=== PATIENT | female | born 1945 | race Caucasian/White ===

== ENCOUNTER 2018-09-26 04:46 | Inpatient (IN) | payer BC, OTHER ==
[~2018-09-26] VITALS: Ht 160 cm; Wt 61.7 kg
[~2018-09-26 04:46] MED LIST: AMLO10TA4 PO; FLUO40CA8 PO; HYDR-3974 PO
--- NOTE | 2018-09-26 04:55 | NUR ---
PT BIBRA FOR SOB. PER EMS, PT WAS SATURATING IN THE 80S BUT WAS GIVEN ALBUTEROL TREATMENT EN ROUTE AND PT SATURATION WENT TO 99%. PT AXO4. PT TACHYPNIC AND DYPSNIC UPON ARRIVAL. PT PUT ON THE [employer] AND PULSE OX.
--- NOTE | 2018-09-26 05:15 | NUR ---
XRAY AT BEDSIDE.
[2018-09-26] MEDS ORDERED: ALBUTEROL FS 2.5 MG/0.5 ML VIAL.NEB ONE (05:18)
--- NOTE | 2018-09-26 05:20 | NUR ---
RT AT BEDSIDE.
[2018-09-26 05:28] LABS: BASOPHILS # (AUTO) 0.1 /CMM (0.0-0.2); BASOPHILS % (AUTO) 0.6 % (0.0-2.0); EOSINOPHILS % (AUTO) 0.9 % (0.0-6.0); HEMATOCRIT 41 % (33-45); HEMOGLOBIN 13.9 g/dL (11.5-14.8); LYMPHOCYTES # (AUTO) 2.2 /CMM (0.8-4.8); LYMPHOCYTES % (AUTO) 21.6 % (20.0-44.0); MEAN CORPUSCULAR HGB CONC 34 g/dl (31.0-36.0); MEAN CORPUSCULAR VOLUME 98 fL (82-100); MONOCYTES # (AUTO) 0.7 /CMM (0.1-1.30); MONOCYTES % (AUTO) 6.5 % (2.0-12.0); NEUTROPHILS % (AUTO) 70.4 % (43.0-81.0); PLATELET COUNT (AUTO) 215 /CMM (150-450); RED BLOOD CELL COUNT(AUTO) 4.21 MIL/uL (4.0-5.2)
[2018-09-26] MEDS ORDERED: ALBUTEROL FS 2.5 MG/0.5 ML VIAL.NEB NEB ONE (05:30)
--- NOTE | 2018-09-26 05:35 | NUR ---
PT HAVING NAUSEA AND VOMITTING. ER MD AWARE. VERBAL ORDER OF 4MG ZOFRAN IVP. WILL CARRY OUT ORDERS.
[2018-09-26 05:38] LABS: CALCIUM, SERUM 8.3 mg/dL (8.5-10.1); CARBON DIOXIDE 25 mmol/L (21-32); CHLORIDE 106 mmol/L (98-107); CREATININE 1.1 mg/dL (0.6-1.3); GLUCOSE 154 mg/dL (74-106); POTASSIUM 3.1 mmol/L (3.5-5.1); SODIUM SERUM 140 mmol/L (136-145); UREA NITROGEN, BLOOD 26 mg/dL (7-18)
[2018-09-26] MEDS ORDERED: ONDANSETRON HCL/PF 4 MG/2 ML VIAL ONE (05:38)
[2018-09-26 05:51] LABS: ALANINE AMINOTRANSFERASE 73 U/L (12-78); ALBUMIN 3.4 g/dL (3.4-5.0); ALKALINE PHOSPHATASE 115 U/L (46-116); ASPARTATE AMINOTRANSFERASE 67 U/L (15-37); B-TYPE NATRIURETIC PEPTIDE 3634 PG/ML (0-125); BILIRUBIN,DIRECT 0.1 mg/dL (0.0-0.2); BILIRUBIN,TOTAL 0.3 mg/dL (0.2-1.0); TOTAL PROTEIN, SERUM 6.4 g/dL (6.4-8.2)
[2018-09-26] MEDS ORDERED: ONDANSETRON HCL/PF 4 MG/2 ML VIAL IV ONE (06:00)
--- NOTE | 2018-09-26 06:30 | NUR ---
PT RESTING IN BED, NAD NOTED. WILL CONTINUE TO MONITOR.
[2018-09-26] MEDS ORDERED: FUROSEMIDE 40 MG/4 ML VIAL ONE (06:35)
[2018-09-26] MEDS ORDERED: POTASSIUM CHLORIDE 20 MEQ TAB.PRT.SR PO ONE ×2 (06:35→07:00)
[2018-09-26] MEDS ORDERED: NITROGLYCERIN PACKET 1 GM PACKET ONE (06:46)
[2018-09-26] MEDS ORDERED: ASPIRIN 81 MG TAB.CHEW ONE (06:47)
[2018-09-26] MEDS ORDERED: NITROGLYCERIN PACKET 1 GM PACKET TD ONE (07:00)
[2018-09-26] MEDS ORDERED: FUROSEMIDE 40 MG/4 ML VIAL IV ONE (07:00)
[2018-09-26] MEDS ORDERED: ASPIRIN 81 MG TAB.CHEW PO ONE (07:00)
--- NOTE | 2018-09-26 07:33 | NUR ---
REPORT GIVEN TO FATEMEH HARMAN FOR JOCELYNN.
[2018-09-26] MEDS ORDERED: AMLO5TAB9 PO (07:52)
[2018-09-26] MEDS ORDERED: ASPI-1169 PO (07:52)
--- NOTE | 2018-09-26 08:05 | NUR ---
Updated with plan of care- reclining in bed NO obvious distress no acute changes from initial assessment await disposition
--- NOTE | 2018-09-26 11:01 | NUR ---
TELE 308-2
--- NOTE | 2018-09-26 11:09 | NUR ---
REPORT GIVEN TO URIEL OF TELE UNIT
[2018-09-26 12:05] VITALS: BP 151/82
[2018-09-26] MEDS ORDERED: HYDROCODONE/APAP 5/325MG 1 EACH TABLET PO PRN (13:30)
--- NOTE | 2018-09-26 13:30 | NUR ---
SENIOR STEREO COMPILER TEAM LEAD ADMITTING NOTES ADMITTED TO 73 Y/O FEMALE FROM [facility]. VIA WHEELCHAIR AT 1200. PT IS A/O X4. ABLE TO VERBALIZED NEEDS WITH C/O MILD HEADACHE. PT WITH DIAGNOSIS OF SOB AND CHF. ORIENTED TO UNIT AND ROOM. PT ON 02 VIA N/C AT 2LPM, TOLERATING WELL WITH SP02 OF 96% NOTED. V/S TAKEN AND RECORDED. PT PLACED ON TELEMONITORING SHOWING SR WITH HR OF 80, NO C/O CARDIAC DISTRESS VOICED. PT WITH CLEAR LUNGS ON AUSCULTATION . ABDOMEN SOFT, NON-TENDER AND NON-DISTENDED. PT NOTED WITH IV ACCESS ON LAC G#20 INTACT AND PATENT. PHOTOS OF SKIN ISSUES TAKEN AD FILED ON CHART. SAFETY MEASURES INITIATED. BED PLACED IN LOW LOCKED POSITION WITH SR UP X2. CALL LIGHT IN REACH. DR DAVENPORT MADE AWARE OF PT'S ADMISSION. WILL CONTINUE TO MONITOR PT ACCORDINGLY
[2018-09-26] MEDS: ACETAMINOPHEN 325 MG TABLET PO PRN ×2 (13:40→20:07)
[2018-09-26] MEDS: FUROSEMIDE 20 MG/2 ML VIAL IV SCH (16:53)
[2018-09-26] MEDS: AMLODIPINE BESYLATE 5 MG TABLET PO SCH (16:53)
[2018-09-26] MEDS: POTASSIUM CHLORIDE 20 MEQ TAB.PRT.SR PO SCH (16:53)
--- NOTE | 2018-09-26 18:30 | NUR ---
DOG GROOMER CLOSING NOTES PT AWAKE AND RESTING AT MODERATE HIGH BACKREST POSITION AT THIS TIME. A/O X4. ABLE TO MAKE NEEDS KNOWN. MAINTAINED ON 02 VIA N/C AT 2LPM, TOLERATING WELL WITH NO SOB NOTED. ON TELEMONITORING WITH CURRENT READING OF SR WITH HR OF 79, NO C/O CARDIAC DISTRESS VOICED. ALL NEEDS AND CARE ATTENDED WELL. IV ACCESS ON LAC G#20 INTACT AND PATENT, FLUSHES WELL. SAFETY MEASURES KEPT IN PLACE. BED IN LOW LOCKED POSITION WITH SR UP X2. CALL LIGHT IN REACH. WILL ENDORSE TO PUBLIC AREA SUPERVISOR NURSE FOR JOCELYNN.
[2018-09-26 20:00] VITALS: BP 152/80
--- NOTE | 2018-09-26 20:31 | NUR ---
RN NOTES COMPLAINED OF HEADACHE- TYLENOL 650MNG PO GIVEN ORDERED, V/S STABLE
[2018-09-26 20:34] LABS: APPEARANCE,URINE SL CLOUDY (CLEAR); BILIRUBIN,URINE NEGATIVE (NEGATIVE); BLOOD, URINE 3+ Ery/uL (NEGATIVE); COLOR,URINE YELLOW (YELLOW); KETONES,URINE NEGATIVE (NEGATIVE); LEUKOCYTE ESTERASE ,URINE NEGATIVE (NEGATIVE); NITRITE, URINE NEGATIVE (NEGATIVE); PROTEIN,URINE NEGATIVE (NEGATIVE); UGLUCOSE NEGATIVE (NEGATIVE); UROBILINOGEN,URINE 0.2 EU/dL (0.2)
--- NOTE | 2018-09-26 21:06 | NUR ---
RN NOTE RECEIVED PT. AWAKE ON BED, A/OX4, AMBULATE WITH ASSIST, SR ON TELE MONITOR HR-77, COMPLAINED PT HEADACHE- WILL GIVE TYLENOL, CALL LIGHT WITHIN REACH, [id number],, CONTINUE TO MONITOR
[2018-09-26 21:28] LABS: BACTERIA,URINE None seen /HPF (None Seen); RBC,URINE 21-50 /HPF (0-2); WBC,URINE 0-2 /HPF (0-3)
[2018-09-26 21:29] LABS: SQUAMOUS EPITHELIAL CELL,UR Few /HPF (None Seen)
--- NOTE | 2018-09-26 23:12 | NUR ---
Patient lives alone in an apartment. Prior to hospitalization she was normally ambulatory and independent with adl's. Has no DME or homehealth reported. Her pcp is Dr. Geo Walsh [phone]. She plan to return home once discharge. Addendum: 09/26/18 at 2312 by JUDI PLATT RN Amended: Links added.
[2018-09-27] VITALS: BP 129/63
[2018-09-27 05:00] VITALS: BP 153/71
[2018-09-27 06:21] LABS: BASOPHILS % (AUTO) 0.3 % (0.0-2.0); EOSINOPHILS % (AUTO) 0.5 % (0.0-6.0); HEMATOCRIT 40 % (33-45); HEMOGLOBIN 13.8 g/dL (11.5-14.8); LYMPHOCYTES # (AUTO) 2.6 /CMM (0.8-4.8); LYMPHOCYTES % (AUTO) 26.2 % (20.0-44.0); MEAN CORPUSCULAR HGB CONC 34 g/dl (31.0-36.0); MEAN CORPUSCULAR VOLUME 97 fL (82-100); MONOCYTES # (AUTO) 0.7 /CMM (0.1-1.30); MONOCYTES % (AUTO) 7.2 % (2.0-12.0); NEUTROPHILS # (AUTO) 6.5 /CMM (1.8-8.9); NEUTROPHILS % (AUTO) 65.8 % (43.0-81.0); PLATELET COUNT (AUTO) 208 /CMM (150-450); RED BLOOD CELL COUNT(AUTO) 4.16 MIL/uL (4.0-5.2); WHITE BLOOD COUNT (AUTO) 9.9 K/uL (4.3-11.0)
[2018-09-27 06:33] VITALS: BP 153/71
[2018-09-27 06:40] LABS: CALCIUM, SERUM 8.7 mg/dL (8.5-10.1); CARBON DIOXIDE 29 mmol/L (21-32); CHLORIDE 105 mmol/L (98-107); CREATININE 0.9 mg/dL (0.6-1.3); GLUCOSE 104 mg/dL (74-106); POTASSIUM 3.4 mmol/L (3.5-5.1); SODIUM SERUM 144 mmol/L (136-145); UREA NITROGEN, BLOOD 22 mg/dL (7-18)
--- NOTE | 2018-09-27 06:47 | NUR ---
RN NOTES AWAKE, DENIES PAIN, NO SOB, MORNING CARE RENDERED, CALL LIGHT WITHIN REACH, SIDERAILSUPX2, PT. NEEDS ATTENDED
[2018-09-27 06:53] LABS: THYROID STIMULATING HORMONE 1.822 uIU/mL (0.358-3.74)
--- NOTE | 2018-09-27 07:11 | NUR ---
DIRECTOR CORPORATE OPENING NOTES RECEIVED PT AWAKE IN BED IN NO ACUTE SIGNS OF DISTRESS. A/O X4. ABLE TO MAKE NEEDS KNOWN, DENIES PAIN OR DISCOMFORTS AT THIS TIME. ON 02 VIA N/C AT 2LPM, TOLERATING WELL WITH NO SOB NOTED. ON TELEMONITORING SHOWING SR WITH BBB AND HR OF 66, NO C/O CARDIAC DISTRESS VOICED. IV ACCESS ON LAC G#20 INTACT AND PATENT, FLUSHES WELL WITH NS. SAFETY MEASURES IN PLACE. BED IN LOW LOCKED POSITION WITH SR UP X2. CALL LIGHT IN REACH. WILL CONTINUE TO MONITOR.
[2018-09-27 08:00] VITALS: BP 136/72
[2018-09-27] MEDS ORDERED: FURO-145 PO (08:34)
[2018-09-27] MEDS ORDERED: POTA20TA83 PO (08:37)
[2018-09-27] MEDS: FUROSEMIDE 20 MG/2 ML VIAL IV SCH (08:49)
[2018-09-27] MEDS: AMLODIPINE BESYLATE 5 MG TABLET PO SCH (08:49)
[2018-09-27] MEDS: POTASSIUM CHLORIDE 20 MEQ TAB.PRT.SR PO SCH (08:49)
[2018-09-27] MEDS ORDERED: AMLODIPINE BESYLATE 5 MG TABLET PO SCH (09:00)
[2018-09-27] MEDS ORDERED: ASPIRIN 81 MG TAB.CHEW PO SCH (09:00)
[2018-09-27] MEDS ORDERED: POTASSIUM CHLORIDE 20 MEQ TAB.PRT.SR PO ONE (09:00)
[2018-09-27] MEDS ORDERED: FLUOXETINE HCL 20 MG CAPSULE PO SCH (09:00)
[2018-09-27 12:00] VITALS: BP 158/80
--- NOTE | 2018-09-27 15:18 | NUR ---
CONTROL CLERK FOOD AND BEVERAGE NOTES PATIENT DISCHARGE HOME IN STABLE CONDITION. A/O X4. ABLE TO MAKE NEEDS KNOWN WITH NO C/O PAIN OR DISCOMFORTS VOICED DURING DISCHARGE. V/S TAKEN AND RECORDED. PHOTOS OF SKIN ISSUES TAKEN AND FILED ON CHART. ALL BELONGINGS ACCOUNTED FOR. NAME WRISTBAND REMOVED. IV ACCESS REMOVED WITH MINIMAL BLEEDING NOTED, PRESSURE GAUZED APPLIED AND TAPED. HEALTH TEACHINGS /DISCHARGE INSTRUCTIONS GIVEN AND VERBALIZED UNDERSTANDING. NEW PRESCRIPTION GIVEN TO PT. PT LEFT UNIT AMBULATORY ACCOMPANIED BY FRIEND ALAN AT 1510. MD AND CHARGE NURSE AWARE OF DISCHARGE.
== END 2018-09-27 15:00 | disposition home or self-care (01) | DRG 292 ==
LOC: ER 04:52 → TELE 11:28 → MED 15:08 → TELE 17:33 → MED 09-27 08:25
PROVIDERS: ADMIT Internal Medicine; ATTEND Internal Medicine
DX: I11.0 Hypertensive heart disease with heart failure (principal); E87.2 Acidosis; I50.33 Acute on chronic diastolic (congestive) heart failure; F43.10 Post-traumatic stress disorder, unspecified; Z95.2 Presence of prosthetic heart valve; E87.6 Hypokalemia; R09.02 Hypoxemia; Z88.2 Allergy status to sulfonamides
CPT/HCPCS: 36415; 71045-TC; 80048-TC; 80076-TC; 81000-TC; 83605-TC; 83880; 84443-TC; 84484-TC; 85025-TC; 85730-TC; 87040-TC; 87081-TC; 93307-TC; G0378; J1940; J2405

== ENCOUNTER 2019-04-21 20:16 | Inpatient (IN) | payer OTHER ==
[~2019-04-21] VITALS: Ht 160 cm; Wt 54.4 kg
[~2019-04-21 20:16] MED LIST changes: -AMLO10TA4 PO; +AMLO5TAB9 PO; +ASPI-1169 PO; +FURO-145 PO; -HYDR-3974 PO; +POTA20TA83 PO
--- NOTE | 2019-04-21 20:17 | NUR ---
PT CAME INTO ER FOR SOB AFTER BENDING FORWARD. PT HAS BEEN COMPLIANT WITH LASIX PRESCRIBED BY HER ENVIRONMENTAL DESIGNER. AAOX4. NO NAUSEA/VOMITING. CRACKLES HEARD UPON AUSCULATION LOWER LOBES BILATERALLY. ON ROOM AIR 98%. NOT IN ANY DISTRESS. BREATHING EVENLY AND UNLABORED. WILL CONTINUE TO MONITOR PATIENT.
--- NOTE | 2019-04-21 20:42 | NUR ---
BLOOD DRAWN AND SENT TO LAB
[2019-04-21 20:48] LABS: BASOPHILS # (AUTO) 0.3 /CMM (0.0-0.2); BASOPHILS % (AUTO) 3.4 % (0.0-2.0); EOSINOPHILS % (AUTO) 1.2 % (0.0-6.0); HEMATOCRIT 43 % (33-45); HEMOGLOBIN 14.2 g/dL (11.5-14.8); LYMPHOCYTES # (AUTO) 1.4 /CMM (0.8-4.8); LYMPHOCYTES % (AUTO) 15.1 % (20.0-44.0); MEAN CORPUSCULAR HGB CONC 33 g/dl (31.0-36.0); MEAN CORPUSCULAR VOLUME 99 fL (82-100); MONOCYTES # (AUTO) 0.5 /CMM (0.1-1.30); MONOCYTES % (AUTO) 5.7 % (2.0-12.0); NEUTROPHILS % (AUTO) 74.6 % (43.0-81.0); PLATELET COUNT (AUTO) 223 /CMM (150-450); RED BLOOD CELL COUNT(AUTO) 4.36 MIL/uL (4.0-5.2); WHITE BLOOD COUNT (AUTO) 9.3 K/uL (4.3-11.0)
--- NOTE | 2019-04-21 20:55 | NUR ---
DRAWING KILN SUPERVISOR AT BEDSIDE.
[2019-04-21 21:08] LABS: ALBUMIN 3.4 g/dL (3.4-5.0); BILIRUBIN,DIRECT 0.2 mg/dL (0.0-0.2); BILIRUBIN,TOTAL 0.7 mg/dL (0.2-1.0); CALCIUM, SERUM 8.9 mg/dL (8.5-10.1); CREATININE 1.1 mg/dL (0.6-1.3); TOTAL PROTEIN, SERUM 6.2 g/dL (6.4-8.2)
[2019-04-21 21:09] LABS: POTASSIUM 2.8 mmol/L (3.5-5.1)
[2019-04-21] MEDS ORDERED: POTASSIUM CHLORIDE 20 MEQ TAB.PRT.SR PO ONE (21:30)
--- NOTE | 2019-04-21 21:57 | NUR ---
SPOKE WITH [facility] IS PROJECT MANAGER. POSSIBLE TRANSFER TO EITHER [facility] OR [facility]. PENDING MD TO
--- NOTE | 2019-04-21 22:09 | NUR ---
DR. MOTA ON THE PHONE WITH DR. PEARCE FROM [facility]
--- NOTE | 2019-04-21 22:53 | NUR ---
SENIOR GEOLOGIST STATES NO BEDS AT [facility], WILL FIND A BED AT [facility] AND FOLLOW UP
--- NOTE | 2019-04-21 23:54 | NUR ---
PER KADIE PEÑA RESTAURANT WORKER ([phone]) STILL WAITING FOR BED AT [facility]
--- NOTE | 2019-04-22 00:20 | NUR ---
PER CASEY SEGOVIA, NO BEDS AVAILABLE AT [facility] OR [facility], AUTHORIZATION TO STAY AT [facility]
--- NOTE | 2019-04-22 00:35 | NUR ---
patient going TO ROOM 308-2
--- NOTE | 2019-04-22 00:41 | NUR ---
REPORT GIVEN TO CHELSEY FOR JOCELYNN.
[2019-04-22] MEDS ORDERED: FURO-145 PO (00:50)
[2019-04-22] MEDS ORDERED: POTA10CA43 PO (00:50)
[2019-04-22 01:00] VITALS: BP_SYST 152; BP_SYST 155; BP_DIAS 85
[2019-04-22] MEDS ORDERED: ACETAMINOPHEN 325 MG TABLET PO PRN (01:00)
[2019-04-22] MEDS ORDERED: Magnesium 1GM/D5W 100ML PREMIX PIGGYBACK IV ONE (01:00)
--- NOTE | 2019-04-22 01:00 | NUR ---
AIR LIFT OPERATORMECHANICAL SERVICE REPRESENTATIVE NOTE RECEIVED PATIENT VIA GURNEY. PATIENT TRANSPORTED TO BED. A/O X4. ON OXYGEN 2L/MIN VIA NASAL CANNULA. RESPIRATIONS ARE EVEN AND UNLABORED. SOB NOTED WHEN PATIENT IS TRYING TO SIT UP IN BED. DENIES PAIN AT THIS TIME. EXTERNAL TELE MONITOR READS SR WITH PVC HR 82. NO APPARENT DISTRESS NOTED. IV ACCESS IN LAC #20 PATENT AND SALINE LOCKED. ID BAND CHANGED, PATIENT CHANGED INTO GOWN, VS TAKEN. INITIAL PHYSICAL ASSESSMENT COMPLETED AT THIS TIME. SKIN ASSESSMENT COMPLETED, PICTURES TAKEN AND PLACED IN CHART. BELONGINGS LIST COMPLETED BY RAIL GANG SUPERVISOR. ROOM ORIENTATION GIVEN WELL USE OF CALL LIGHT. BED IS LOW AND LOCKED, HOB FLAT, SIDE RAILS UP X2. CALL LIGHT WITHIN REACH. WILL CONTINUE TO MONITOR.
[2019-04-22] MEDS: AMLODIPINE BESYLATE 10 MG TABLET PO SCH ×2 (01:52→08:30)
[2019-04-22 04:22] VITALS: BP 143/76
[2019-04-22 06:32] LABS: BASOPHILS % (AUTO) 0.3 % (0.0-2.0); EOSINOPHILS % (AUTO) 0.7 % (0.0-6.0); HEMATOCRIT 42 % (33-45); LYMPHOCYTES # (AUTO) 2.3 /CMM (0.8-4.8); LYMPHOCYTES % (AUTO) 22.1 % (20.0-44.0); MEAN CORPUSCULAR HGB CONC 33 g/dl (31.0-36.0); MEAN CORPUSCULAR VOLUME 99 fL (82-100); MONOCYTES # (AUTO) 0.7 /CMM (0.1-1.30); MONOCYTES % (AUTO) 6.6 % (2.0-12.0); NEUTROPHILS # (AUTO) 7.2 /CMM (1.8-8.9); NEUTROPHILS % (AUTO) 70.3 % (43.0-81.0); PLATELET COUNT (AUTO) 200 /CMM (150-450); RED BLOOD CELL COUNT(AUTO) 4.25 MIL/uL (4.0-5.2); WHITE BLOOD COUNT (AUTO) 10.2 K/uL (4.3-11.0)
[2019-04-22 06:35] LABS: CALCIUM, SERUM 8.5 mg/dL (8.5-10.1); POTASSIUM 3.1 mmol/L (3.5-5.1)
--- NOTE | 2019-04-22 07:00 | NUR ---
PROFESSOR OF SOCIOLOGY CLOSING NOTE PATIENT RESTING IN BED. A/O X4. ON OXYGEN 2L/MIN VIA NASAL CANNULA, RESPIRATIONS EVEN AND UNLABORED. SOB NOTED WHEN EXERTION. NO C/O PAIN THROUGHOUT SHIFT. TELE READS SR PVC 88. NO DISTRESS THROUGHOUT NIGHT. IV ACCESS MAINTAINED IN LFA #20 SL. BED REMAINS LOW AND LOCKED, SIDE RAILS UP X2, BED ALARM ON. WILL ENDORSE TO NEXT SHIFT.
--- NOTE | 2019-04-22 07:27 | NUR ---
DIAMOND POWDER TECHNICIAN NOTES PATIENT RECEIVED RESTING IN BED A/O x4. IV LOCATED ON L AC #20. NO SIGNS OF ACUTE DISTRESS AND CURRENTLY NO COMPLAINTS OF ANY PAIN OR NAUSEA. SR 88. SAFETY PRECAUTIONS ARE IN PLACE WITH BED IN LOWEST POSITION, BED ALARM ON, AND CALL LIGHT WITHIN REACH. WILL CONTINUE TO MONITOR.
[2019-04-22 08:07] VITALS: BP 135/72
[2019-04-22] MEDS: FUROSEMIDE 40 MG/4 ML VIAL IV SCH ×2 (08:29→16:51)
[2019-04-22] MEDS: ASPIRIN 81 MG TAB.CHEW PO SCH (08:30)
[2019-04-22] MEDS: FLUOXETINE HCL 20 MG CAPSULE PO SCH (08:30)
[2019-04-22] MEDS: POTASSIUM CHLORIDE 20 MEQ TAB.PRT.SR PO SCH ×2 (08:30→16:51)
--- NOTE | 2019-04-22 08:45 | NUR ---
RN NOTE RECEIVED ORDER FROM DR RAMIREZ TO DISCONTINUE TELE AND TRANSFER THE PATIENT TO [facility].
[2019-04-22] MEDS ORDERED: POTASSIUM CHLORIDE 20 MEQ TAB.PRT.SR PO ONE (09:00)
--- NOTE | 2019-04-22 09:00 | NUR ---
INTERNATIONAL BROADCAST MUSIC LIBRARIAN NOTES SEEN BY DR. DAVENPORT AND CARDIO CONSULT WAS ORDERED.
--- NOTE | 2019-04-22 09:37 | NUR ---
VP ORGANIZATIONAL DEVELOPMENT NOTES PATIENT WAS SEEN BY DR. HERNANDES AND ORDERED A CT ANGIOGRAM. WILL OBTAIN CONSENT FORM.
[2019-04-22] MEDS ORDERED: CT SWABBABLE VALVE TRANS SET 1 EA INFUS.SET MC ONE (10:21)
[2019-04-22] MEDS ORDERED: IOHEXOL-350 100 ML VIAL IV ONE (10:21)
[2019-04-22] MEDS ORDERED: IV NS 0.9% 250 ML IV ONE (10:21)
[2019-04-22] MEDS ORDERED: METOPROLOL TARTRATE INJ 5 MG/5 ML AMPUL ONE (10:23)
[2019-04-22] MEDS ORDERED: IV NS 0.9% 500 ML IV ONE (10:24)
--- NOTE | 2019-04-22 10:26 | NUR ---
PARTS PERSON NOTES PATIENT PICKED UP VIA WHEELCHAIR TO GO TO DIRECTOR OF HOSPITALITY FOR CT ANGIOGRAM. MEDICAL RECORDS BROUGHT DOWN WITH PATIENT.
[2019-04-22] MEDS ORDERED: NITROGLYCERIN 4.9 GM SPRAY SL PRN (10:30)
[2019-04-22] MEDS ORDERED: IV NS 0.9% 500 ML IV PRN (10:30)
[2019-04-22] MEDS: METOPROLOL TARTRATE INJ 5 MG/5 ML AMPUL IVP PRN ×3 (10:38→11:08)
--- NOTE | 2019-04-22 11:16 | NUR ---
CTA Cardiac notes VSS denies CP or SOb at 1102 pt felt SOB , felt warm, VSS ; O2 sat on 2 LPM at 97% verbalized " same feeling i felt for 6 months. i feel like i want to pee". pt felt better after a few minutes, VSS. denies Cp SOb at this time
--- NOTE | 2019-04-22 11:45 | NUR ---
CTA Cardio completed; VSS stable 116/57 Report given to Jelena HARMAN, pt transferred back to [facility] via wheelchair
--- NOTE | 2019-04-22 11:52 | NUR ---
M/S RN NOTES PATIENT BACK FROM [facility] CARDIO. NO SIGNS OF DISTRESS NOTED AND NO COMPLAINTS OF PAIN. WILL CONTINUE TO MONITOR.
[2019-04-22 12:01] LABS: THYROID STIMULATING HORMONE 2.184 uIU/mL (0.358-3.74)
--- NOTE | 2019-04-22 13:09 | NUR ---
MS/RN 2D Echo 2D echo in progress at bedside.
[2019-04-22 16:00] VITALS: BP 116/69
--- NOTE | 2019-04-22 18:19 | NUR ---
M/S RN NOTES PATIENT IS RESTING IN BED WATCHING TV, A/O x4. ABLE TO FOLLOW COMMANDS AND VOCALIZE NEEDS. PATIENT IS AMBULATORY. PATIENT IS ON 2L OF O2 NASAL CANULA WITH O2 SAT AT 99. NO SIGNS OF ACUTE DISTRESS AND NO CURRENT COMPLAINTS OF PAIN OR NAUSEA. IV'S LOCATED ON LEFT AC #20 SL AND RIGHT AC #18 SL. SAFETY PRECAUTIONS ARE IN PLACE WITH BED IN LOWEST POSITION, SIDE RAILS UP x2, AND CALL LIGHT WITHIN REACH. WILL ENDORSE TO ONCOMING SHIFT ABOUT JOCELYNN.
--- NOTE | 2019-04-23 06:30 | NUR ---
M/S RN PM CLOSING NOTES PATIENT IS RESTING IN BED A/O x4. PATIENT IS AMBULATORY. PATIENT IS ON 2L OF O2 NASAL CANULA WITH O2 SAT DENIES SOB. NO SIGNS OF ACUTE DISTRESS AND DENIES PAIN OR NAUSEA. IV'S LOCATED ON LEFT AC #20 SL. PT ASSISTED TO BATHROOM. SAFETY PRECAUTIONS ARE IN PLACE WITH BED IN LOWEST POSITION, SIDE RAILS UP x2, AND CALL LIGHT WITHIN REACH.
[2019-04-23 08:00] VITALS: BP 136/69
--- NOTE | 2019-04-23 08:00 | NUR ---
ms rn received on bed, awake,alert,oriented x4,not in any form of distress, respirations even and unlabored,no sob noted, lungs are clear,abdomen soft,positive bowel sounds,denies pain at this time,all needs attended.
--- NOTE | 2019-04-23 08:00 | NUR ---
MS RN OPENING NOTES Received Patient awake and eating breakfast at this time. A/O x 4. VS stable with no acute distress. Breathing even and unlabored on 2LPM via NC with no respiratory distress. Denies pain. 20g PIV on LAC clean, intact, patent, and flushing well. Safety precautions in place. Bed locked and set to lowest position with side rails x 2 up. All needs rendered at this time. Call light within reach. Will continue to monitor.
[2019-04-23 08:44] LABS: BASOPHILS # (AUTO) 0.1 /CMM (0.0-0.2); BASOPHILS % (AUTO) 0.8 % (0.0-2.0); EOSINOPHILS % (AUTO) 0.4 % (0.0-6.0); HEMATOCRIT 42 % (33-45); LYMPHOCYTES # (AUTO) 1.3 /CMM (0.8-4.8); LYMPHOCYTES % (AUTO) 13.3 % (20.0-44.0); MEAN CORPUSCULAR HGB CONC 33 g/dl (31.0-36.0); MEAN CORPUSCULAR VOLUME 98 fL (82-100); MONOCYTES # (AUTO) 0.6 /CMM (0.1-1.30); MONOCYTES % (AUTO) 6.1 % (2.0-12.0); NEUTROPHILS % (AUTO) 79.4 % (43.0-81.0); PLATELET COUNT (AUTO) 193 /CMM (150-450); RED BLOOD CELL COUNT(AUTO) 4.26 MIL/uL (4.0-5.2); WHITE BLOOD COUNT (AUTO) 10.1 K/uL (4.3-11.0)
--- NOTE | 2019-04-23 09:00 | NUR ---
ms mix breakfast served,due meds given,tolerated we.
--- NOTE | 2019-04-23 09:10 | NUR ---
ms mix breakfast served,due meds given,tolerated well
[2019-04-23 09:11] LABS: ALBUMIN 3.1 g/dL (3.4-5.0); BILIRUBIN,TOTAL 0.5 mg/dL (0.2-1.0); CALCIUM, SERUM 9.1 mg/dL (8.5-10.1); CREATININE 1.1 mg/dL (0.6-1.3); POTASSIUM 3.5 mmol/L (3.5-5.1); TOTAL PROTEIN, SERUM 5.8 g/dL (6.4-8.2)
[2019-04-23] MEDS: POTASSIUM CHLORIDE 20 MEQ TAB.PRT.SR PO SCH ×2 (10:13→18:08)
[2019-04-23] MEDS: FUROSEMIDE 40 MG/4 ML VIAL IV SCH ×2 (10:13→18:08)
[2019-04-23] MEDS: FLUOXETINE HCL 20 MG CAPSULE PO SCH (10:14)
[2019-04-23] MEDS: AMLODIPINE BESYLATE 10 MG TABLET PO SCH (10:14)
[2019-04-23] MEDS: ASPIRIN 81 MG TAB.CHEW PO SCH (10:14)
--- NOTE | 2019-04-23 11:24 | NUR ---
Social service consult requested by GHAZAL Wiggins due to pt. residing alone and reports falls at home. Pt. is a 74 year old female who was admitted to [facility] for CHF and Hypokalemia. SW met with the pt. bedside. Pt. is alert and oriented x 4. Pt. is cooperative and pleasant with SW during the assessment. Pt. appears well-groomed. Pt. states she resides alone with her cat "Gerry" in an apartment in [place]. Pt. states she is independent with her ADL's and ambulatory. Pt. reports she drives herself to her doctor appointments and to the grocery store. Pt. has her friend Sarina, who is also her emergency contact . Pt. states she feels safe at home and has been independent for the past 30 years. Pt. has had three husbands and no children. Pt. is looking forward to being discharged back home tomorrow. SW to follow up with case coordinator if pt. will require any home health. No other social service needs are requested at this time. SW is available, if needed.
--- NOTE | 2019-04-23 14:05 | NUR ---
ms rn received a call from [facility], patient is positive for mrsa,placed on isolation precaution.
[2019-04-23 16:00] VITALS: BP 105/55
[2019-04-23] MEDS ORDERED: RIVAROXABAN 10 MG TABLET PO SCH (17:00)
--- NOTE | 2019-04-23 19:00 | NUR ---
MS RN NOTE RECEIVED PT IN STABLE CONDITION A/O X4, CURRENTLY WATCHING TV. NO SIGNS OF SOB OR DISTRESS, NO C/O PAIN OR N/V. IV IN L AC #[address] S/L. ALL CURRENT NEEDS ATTENDED TO. BED LOW, LOCKED, UPPER RAILS UP, AND CALL LIGHT WITHIN REACH. WILL CONT. TO MONITOR.
--- NOTE | 2019-04-23 19:21 | NUR ---
MS RN ON BED, NO DISTRESS NOTED.
[2019-04-23 20:08] VITALS: BP 125/70
--- NOTE | 2019-04-23 22:00 | NUR ---
MS RN NOTE NEW ORDER FROM [facility] FOR BACTROBAN. NEW ORDER CARRIED OUT.
--- NOTE | 2019-04-24 06:21 | NUR ---
MS RN NOTE PT REMAINS IN STABLE CONDITION A/O X4, CURRENTLY RESTING IN BED. NO SIGNS OF SOB OR DISTRESS, NO C/O PAIN OR N/V. IV IN L AC #[address] S/L. ALL CURRENT NEEDS ATTENDED TO. BED LOW, LOCKED, UPPER RAILS UP, AND CALL LIGHT WITHIN REACH. WILL CONT. TO MONITOR AND ENDORSE TO NEXT SHIFT FOR JOCELYNN.
[2019-04-24 06:24] LABS: BASOPHILS % (AUTO) 0.5 % (0.0-2.0); EOSINOPHILS % (AUTO) 1.4 % (0.0-6.0); HEMATOCRIT 43 % (33-45); HEMOGLOBIN 14.1 g/dL (11.5-14.8); LYMPHOCYTES # (AUTO) 2.1 /CMM (0.8-4.8); LYMPHOCYTES % (AUTO) 25.2 % (20.0-44.0); MEAN CORPUSCULAR HGB CONC 33 g/dl (31.0-36.0); MEAN CORPUSCULAR VOLUME 99 fL (82-100); MONOCYTES # (AUTO) 0.6 /CMM (0.1-1.30); NEUTROPHILS # (AUTO) 5.4 /CMM (1.8-8.9); NEUTROPHILS % (AUTO) 65.9 % (43.0-81.0); PLATELET COUNT (AUTO) 181 /CMM (150-450); WHITE BLOOD COUNT (AUTO) 8.2 K/uL (4.3-11.0)
[2019-04-24 06:36] LABS: CALCIUM, SERUM 8.8 mg/dL (8.5-10.1); POTASSIUM 4.6 mmol/L (3.5-5.1)
--- NOTE | 2019-04-24 07:15 | NUR ---
MS RN NOTES PATIENT IN BED ALERT ORIENTED X4. NO ACUTE DISTRESS NOTED. NO SOB NOTED. IV ACCESS PATENT AND INTACT, NO REDNESS OR SWELLING NOTED. SAFETY MEASURES IN PLACE. CALL LIGHT WITHIN REACH. WILL CONTINUE TO MONITOR ACCORDINGLY.
[2019-04-24 08:00] VITALS: BP 122/59
[2019-04-24] MEDS: POTASSIUM CHLORIDE 20 MEQ TAB.PRT.SR PO SCH (08:19)
[2019-04-24] MEDS: ASPIRIN 81 MG TAB.CHEW PO SCH (08:19)
[2019-04-24] MEDS: FUROSEMIDE 40 MG/4 ML VIAL IV SCH (08:19)
[2019-04-24] MEDS: AMLODIPINE BESYLATE 10 MG TABLET PO SCH (08:19)
[2019-04-24] MEDS: FLUOXETINE HCL 20 MG CAPSULE PO SCH (08:19)
[2019-04-24] MEDS ORDERED: POTA20TA10 PO (08:23)
[2019-04-24] MEDS ORDERED: FURO-144 PO (08:23)
[2019-04-24] MEDS ORDERED: RIVA10TA PO (08:23)
--- NOTE | 2019-04-24 08:26 | NUR ---
WEAPONS DESIGNER NOTES CALLED PHARMACY SPOKE WITH [facility] FOR BACTROBAN NOT AVAILABLE ON THE FLOOR YET, SAID STILL WAITING FOR DELIVERY, PHARMACY WILL BRING ON THE FLOOR ONCE AVAILABLE.
--- NOTE | 2019-04-24 08:31 | NUR ---
MS RN NOTES SEEN AND EVALUATED BY ISSAC, MADE AWARE THAT BACTROBAN NOT GIVEN AT THIS THIME, WILL ADMINISTER ONCE AVAILABLE ON THE FLOOR.
[2019-04-24] MEDS ORDERED: LISI-603 PO (08:32)
[2019-04-24] MEDS ORDERED: CARV3.12 PO (08:32)
[2019-04-24] MEDS ORDERED: LISINOPRIL (20MG) 20 MG TABLET PO SCH (09:00)
[2019-04-24] MEDS ORDERED: CARVEDILOL 3.125 MG TABLET PO SCH (09:00)
[2019-04-24] MEDS ORDERED: MUPIROCIN OINT 2% 22 GM TUBE SCH (09:00)
[2019-04-24 09:45] VITALS: BP 109/72
--- NOTE | 2019-04-24 15:12 | NUR ---
MS RN NOTES IV ACCESS REMOVED, NO BLEEDING . NO REDNESS, NO SWELLING NOTED.
--- NOTE | 2019-04-24 15:12 | NUR ---
MS RN NOTES PATIENT DISCHARGE HOME WITH [facility] WITH STABLE VITAL SIGNS. NO ACUTE DISTRESS NOTED. BREATHING UNLABORED. NO SOB NOTED. DISCHARGE INSTRUCTIONS GIVEN TO THE PATIENT INCLUDING FOLLOW UP WITH PRIMARY DOCTOR AND CAN PILER AND NEW PRESCRIPTION , VERBALIZED UNDERSTANDING. PATIENT ALERT ORIENTED X 3. WHEELED TO THE LOBBY, ASSISTED TO A PRIVATE CAR ACCOMPANIED BY FRIEND IN STABLE CONDITION. SKIN IS INTACT. ALL BELONGINGS ACCOUNTED FOR..
== END 2019-04-24 15:00 | disposition home health service (06) | DRG 282 ==
LOC: ER 20:18 → TELE 04-22 00:36 → MED 04-22 09:07
PROVIDERS: ADMIT Internal Medicine; ATTEND Internal Medicine
DX: I11.0 Hypertensive heart disease with heart failure (principal); I21.A1 Myocardial infarction type 2; F43.10 Post-traumatic stress disorder, unspecified; Z85.51 Personal history of malignant neoplasm of bladder; E87.6 Hypokalemia; Z95.3 Presence of xenogenic heart valve; I34.0 Nonrheumatic mitral (valve) insufficiency; I50.43 Acute on chronic combined systolic (congestive) and diastolic (congestive) heart failure; Z79.01 Long term (current) use of anticoagulants; I51.3 Intracardiac thrombosis, not elsewhere classified; Z88.2 Allergy status to sulfonamides; J44.9 Chronic obstructive pulmonary disease, unspecified
CPT/HCPCS: 36415; 71045-TC; 75574; 80048-TC; 80053-TC; 80076-TC; 82962-TC; 83735-TC; 83880; 84100-TC; 84439-TC; 84443-TC; 84484-TC; 85025-TC; 85730-TC; 87081-TC; 93307-TC; G0378; J1940; J3475; J3490; J7030; J7040; J7050; Q9967

== ENCOUNTER 2019-07-23 17:24 | Emergency (ER) | payer OTHER ==
[~2019-07-23] VITALS: Ht 160 cm; Wt 54.0 kg
[~2019-07-23 17:24] MED LIST changes: -AMLO5TAB9 PO; +CARV3.12 PO; +FURO-144 PO; -FURO-145 PO; +LISI-603 PO; +POTA20TA10 PO; -POTA20TA83 PO; +RIVA10TA PO
[2019-07-23] MEDS ORDERED: HYDROCODONE/APAP 5/325MG 1 EACH TABLET PO ONE ×2 (18:00→19:00)
--- NOTE | 2019-07-23 18:00 | NUR ---
c/o left arm pain swelling,left eye hematoma, and abrasion s/p glf, 01/25 ps. Patient a/ox4, breathing even and unlabored, no sob noted, kept comfortable.
[2019-07-23] MEDS ORDERED: HYDROCODONE/APAP 5/325MG 1 EACH TABLET ONE ×2 (18:13→19:06)
--- NOTE | 2019-07-23 18:20 | NUR ---
patient came back from CT.
--- NOTE | 2019-07-23 19:17 | NUR ---
Patient discharged to home in stable condition. Written and verbal after care instructions given. Patient verbalizes understanding of instruction.
[2019-07-23 19:18] VITALS: BP 154/73
== END 2019-07-23 19:19 | disposition home or self-care (01) ==
LOC: ER 17:30
DX: S52.692A Other fracture of lower end of left ulna, initial encounter for closed fracture (principal); S05.12XA Contusion of eyeball and orbital tissues, left eye, initial encounter; I50.9 Heart failure, unspecified; I44.7 Left bundle-branch block, unspecified; Z95.2 Presence of prosthetic heart valve; Z85.51 Personal history of malignant neoplasm of bladder; Z88.2 Allergy status to sulfonamides; Z79.82 Long term (current) use of aspirin; Z79.899 Other long term (current) drug therapy; W10.8XXA Fall (on) (from) other stairs and steps, initial encounter; Y93.89 Activity, other specified; Y92.89 Other specified places as the place of occurrence of the external cause; Y99.8 Other external cause status
CPT/HCPCS: 70450-TC; 73090-TC